=== PATIENT | female | born 1995 | race Hispanic/Latino ===

== ENCOUNTER 2017-01-09 11:44 | Emergency (ER) | payer BC ==
[2017-01-09 11:49] VITALS: TEMP 98.4
[2017-01-09 11:51] VITALS: BMI 18.8
--- NOTE | 2017-01-09 12:02 | ED PDOC ---
Arrival/HPI - General Chief Complaint: Seizure Time Seen by Provider: 01/09/17 11:46 Historian: Patient, Family (Sister ) - History of Present Illness Narrative History of Present Illness (Text): 01/09/17 11:57 Sona Albrecht is a 21 year old female, with a history of seizure, presents to the emergency department for evaluation following a tonic-clonic seizure. No trauma or injury sustained during the seizure episode. Patient was recently seen by her neurologist recently who increased dosage of Keppra. According to sister, patient is compliant with her medications. She was post ictal for <15min , but has regained complete neuro function without any deficits. Denies any complaints at this time. Time/Duration: Prior to Arrival Symptom Onset: Sudden Activities at Onset: Light Past Medical History - Provider Review Nursing Documentation Reviewed: Yes - Cardiac Hx Cardiac Disorders: No - Pulmonary Hx Respiratory Disorders: No - Neurological Hx Neurological Disorder: Yes Hx Seizures: Yes - HEENT Hx HEENT Disorder: No - Renal Hx Renal Disorder: No - Endocrine/Metabolic Hx Endocrine Disorders: No - Hematological/Oncological Hx Blood Disorders: No - Integumentary Hx Dermatological Disorder: No - Musculoskeletal/Rheumatological Hx Musculoskeletal Disorders: No - Gastrointestinal Hx Gastrointestinal Disorders: No - Genitourinary/Gynecological Hx Genitourinary Disorders: No - Psychiatric Hx Psychophysiologic Disorder: No Hx Substance Use: No (unknown) Family/Social History - Physician Review Nursing Documentation Reviewed: Yes Family/Social History: No Known Family HX Smoking Status: Never Smoked Hx Alcohol Use: Yes (unknown) Frequency of alcohol use: Socially Hx Substance Use: No (unknown) Allergies/Home Meds Allergies/Adverse Reactions: Allergies banana Allergy (Verified 01/09/17 11:52) ANAPHYLAXIS Home Medications: Home Meds Medication Instructions Recorded Confirmed Levetiracetam [Keppra] 750 mg PO BID 01/09/17 01/09/17 Physical Exam - Physical Exam Narrative Physical Exam (Text): - Review of Systems Constitutional: Normal. absent: Fatigue, Weight Change, Fevers Eyes: Normal ENT: Normal Respiratory: Normal absent: SOB, Cough, Sputum Cardiovascular: Normal absent: Chest pain, Palpitations, Syncope Gastrointestinal: Normal absent: Abdominal pain, Diarrhea, Nausea, Vomiting Genitourinary: Normal. absent: Dysuria, Frequency, Hematuria Musculoskeletal: Normal. absent: Arthralgias, Back Pain, Neck Pain Skin: Normal Neurological: Witnessed seizure absent: Focal Weakness Endocrine: Normal Hemo/Lymphatic: Normal Psychiatric: Normal - Physical exam Patient appears age appropriate, speaking full sentences without difficulty - Systems Exam Head: Present: Atraumatic, Normocephalic Pupils: Present: PERRL Extraocular Muscles: Present: EOMI Conjunctiva: Present: Normal Mouth: Present: Moist Mucous Membranes Neck: Present: Normal Range of Motion. No: MIDLINE TENDERNESS, Paraspinal Tenderness Respiratory/Chest: Present: Clear to Auscultation, Good Air Exchange. No: Respiratory Distress, Accessory Muscle Use, Tachypnic Cardiovascular: Present: Regular Rate and Rhythm, Normal S1, S2, Peripheral Pulses Present. No: Murmurs Abdomen: Present: Normal Bowel Sounds, No: Tenderness, Peritoneal Signs, Rebound, Guarding, Distention Back: Present: Normal Inspection. No: Midline Tenderness, Paraspinal Tenderness Upper Extremity: Present: Normal Inspection. No: Cyanosis, Edema Lower Extremity: Present: Normal Inspection. No: Edema Neurological: Present: GCS=15, Speech Normal, cranial nerves II through XII fully intact with no cerebellar abnormality, neuro-sensory fully intact. No focal neurological deficits. Skin: Present: Warm, Dry, Normal Color. No: Rashes Lymphatic: Present: OX3, NI, NC Psychiatric: Present: Alert, Oriented x 3, Normal Insight, Normal Concentration Vital Signs Reviewed: Yes Vital Signs Temp Pulse Resp BP Pulse Ox 01/09/17 11:45 98.4 F 95 H 20 133/78 100 Temperature: Afebrile Blood Pressure: Normal Pulse: Tachycardic Respiratory Rate: Normal Appearance: Positive for: Well-Appearing, Non-Toxic, Comfortable Pain Distress: None Mental Status: Positive for: Alert and Oriented X 3 Finger Stick Blood Glucose: 96 Medical Decision Making ED Course and Treatment: 01/09/17 12:04 Impression: A 21 year old female who presents to the emergency department following witnessed seizure episode. Patient was post ictal for few minutes, but has regained complete neuro function. Differential Diagnosis included but are not limited to: Seizures Plan: -- Labs -- Accucheck -- POC urine preg -- Reassess and disposition Progress Notes: 01/09/17 12:49 pt had another tonic-clonic seizure while in the ED. Ativan IV given resolved pt in no distress, resting in bed Case was discussed with , neurologist, who states that patient is not driving anymore and has been reported to the DMV. Also states that patient has a history of non compliance and asked for blood draw to measure Keppra level, which he will follow up himself. States patient be discharged home with outpatient f/u. Will observe patient for another hour for recurrent seizures. 01/09/17 13:52 pt has remained stable and asymptomatic no complaints at this time pt has no focal neurological deficits on reeval steady gait states that she feels comfortable being dc'd home with outpatient f/u Pt states she understands to return to the ER right away for new or worsening symptoms or for inability to f/u with PMD or specialist as instructed. Patient states that she fully agrees with and understands discharge instructions. States that she agrees with the plan and disposition. Verbalized and repeated discharge instructions and plan. I have given the patient opportunity to ask any additional questions. - Lab Interpretations Lab Results: 01/09/17 11:50 01/09/17 11:50 Lab Results 01/09/17 12:11: POC Glucose (mg/dL) 98 01/09/17 11:50: Sodium 138, Potassium 3.9, Chloride 101, Carbon Dioxide 24, Anion Gap 17, BUN 12, Creatinine 0.9, Est GFR ( Amer) > 60, Est GFR (Non- Af Amer) > 60, Random Glucose 99, Calcium 10.1, Total Bilirubin 0.9, AST 26, ALT 18, Alkaline Phosphatase 104, Total Protein 8.1, Albumin 5.1 H, Globulin 3.0 , Albumin/Globulin Ratio 1.7 01/09/17 11:50: WBC 10.6, RBC 4.46, Hgb 14.1, Hct 39.2, MCV 87.9, MCH 31.6, MCHC 36.0, RDW 12.6, Plt Count 401, MPV 8.8, Gran % 66.0, Lymph % (Auto) 25.1, [place] % (Auto) 6.9 H, Eos % (Auto) 1.7, Baso % (Auto) 0.3, Gran # 6.98 H, Lymph # 2.7, [place] # 0.7 H, Eos # 0.2, Baso # 0.03 - Medication Orders Current Medication Orders: Discontinued Medications Lorazepam (Ativan) Confirm Administered Dose 2 mg .ROUTE .STK-MED ONE Stop: 01/09/17 12:11 Last Admin: 01/09/17 12:21 Dose: Lorazepam (Ativan) 2 mg IVP ONCE ONE Stop: 01/09/17 12:18 Last Admin: 01/09/17 12:10 Dose: 2 mg - Scribe Statement The provider has reviewed the documentation as recorded by the Fartun Gage Provider Attestation: Provider Scribe Attestation: All medical record entries made by the Fartun were at my direction and personally dictated by me. I have reviewed the chart and agree that the record accurately reflects my personal performance of the history, physical exam, medical decision making, and the department course for this patient. I have also personally directed, reviewed, and agree with the discharge instructions and disposition. Disposition/Present on Arrival - Present on Arrival Any Indicators Present on Arrival: No History of DVT/PE: No History of Uncontrolled Diabetes: No Urinary Catheter: No History of Decub. Ulcer: No History Surgical Site Infection Following: None - Disposition Have Diagnosis and Disposition been Completed?: Yes Diagnosis: Seizure Disposition: HOME/ ROUTINE Disposition Time: 14:00 Patient Plan: Discharge Condition: GOOD Discharge Instructions (ExitCare): Epilepsy (ED), Recurrent Seizures in Adults (ED) Additional Instructions: PLEASE CONTINUE TAKING KEPPRA PRESCRIBED BY YOUR NEUROLOGIST PLEASE RETURN TO THE EMERGENCY DEPARTMENT FOR NEW OR WORSENING SYMPTOMS. RETURN RIGHT AWAY IF YOU CANNOT FOLLOW UP WITH YOUR PRIMARY CARE DOCTOR, CLINIC, OR SPECIALIST IN 1-2 DAYS. Referrals: PCP,NO [Primary Care Provider] - Follow up with primary Forms: WORK NOTE
[2017-01-09 12:19] LABS: BASO # 0.03 K/mm3 (0.0-2.0); BASO % 0.3 % (0.0-3.0); BLOOD UREA NITROGEN 12 mg/dL (7-21); EOS # 0.2 (0.0-0.7); EOS % 1.7 % (1.5-5.0); GFR AFRICAN-AMERICAN > 60; GFR NON-AFRICAN AMERICAN > 60; GRAN # 6.98 (1.4-6.5); HEMOGLOBIN 14.1 gm/dL (12.0-16.0); LYMPH # 2.7 (1.2-3.4); LYMPH % 25.1 % (22.0-35.0); MEAN CELL VOLUME 87.9 fL (80.0-105.0); MEAN CORPUSCULAR HEMOGLOBIN 31.6 pg (25.0-35.0); MEAN PLATELET VOLUME 8.8 fl (7.0-11.0); MONO # 0.7 (0.1-0.6); MONO % 6.9 % (1.0-6.0); PLATELET COUNT 401 10^3/uL (120.0-450.0); RBC 4.46 10^6/uL (3.5-6.1); RED CELL DISTRIBUTION WIDTH 12.6 % (11.5-14.5); WHITE BLOOD COUNT 10.6 10^3/ul (4.5-11.0)
[2017-01-09 12:20] LABS: ALB/GLOB RATIO 1.7 (1.1-1.8); ALBUMIN 5.1 g/dL (3.0-4.8); ALT/SGPT 18 U/L (7-56); AST/SGOT 26 U/L (15-39); CALCIUM 10.1 mg/dL (8.4-10.5)
[2017-01-09 14:41] VITALS: BP 127/71; PULSE 100; RESP 18; O2SAT 99
[2017-01-13 07:54] LABS: LEVETIRACETAM 24.2 mcg/mL
== END 2017-01-09 14:15 | disposition home or self-care (01) ==
LOC: ED 11:44 → MERGE 11:44 → ED 14:15
DX: R56.9 Unspecified convulsions (principal)
CPT/HCPCS: 80053; 80299; 82948; 85025; 96374; 99285; J2060